=== PATIENT | female | born 1975 | race Caucasian/White ===

== ENCOUNTER 2023-06-09 00:29 | Emergency (ER) | payer SELFPAY ==
[~2023-06-09] VITALS: Ht 157.5 cm; Wt 65.0 kg
[2023-06-09 00:41] VITALS: BP 146/95; PULSE 102; RESP 16; TEMP 98.4; O2SAT 97
== END 2023-06-09 04:43 | disposition left against medical advice (07) ==
LOC: ER 00:29
DX: Z53.21 Procedure and treatment not carried out due to patient leaving prior to being seen by health care provider (principal)
CPT/HCPCS: 99281